=== PATIENT | male | born 1950 | race Two or more races ===

== ENCOUNTER 2020-06-22 07:59 | Outpatient (CLI) | payer OTHER | END 2020-06-22 08:10 | disposition home or self-care (01) | LOC: LAB 07:59 | PROVIDERS: ATTEND Orthopaedic Surgery | DX: D64.89 Other specified anemias (principal); M06.4 Inflammatory polyarthropathy ==

== ENCOUNTER 2020-06-30 07:52 | Outpatient (CLI) | payer OTHER | END 2020-06-30 08:14 | disposition home or self-care (01) | LOC: NUCLEAR 07:52 | PROVIDERS: ATTEND Orthopaedic Surgery | DX: M25.562 Pain in left knee (principal); Z96.652 Presence of left artificial knee joint; M81.0 Age-related osteoporosis without current pathological fracture | CPT/HCPCS: 77080; 78315; 78802; A9503; A9556 ==

== ENCOUNTER 2020-07-08 11:30 | Outpatient (CLI) | payer OTHER | END 2020-07-08 11:37 | disposition home or self-care (01) | LOC: SONOGRAMA 11:30 | PROVIDERS: ATTEND Pathology Anatomic Pathology & Clinical Pathology | DX: D34 Benign neoplasm of thyroid gland (principal); E04.2 Nontoxic multinodular goiter ==

== ENCOUNTER 2021-03-29 08:44 | Outpatient (CLI) | payer OTHER | END 2021-03-29 08:45 | disposition home or self-care (01) | LOC: NUCLEAR 08:44 | PROVIDERS: ATTEND Orthopaedic Surgery | DX: T84.093D Other mechanical complication of internal left knee prosthesis, subsequent encounter (principal); M25.562 Pain in left knee | CPT/HCPCS: 78315; 78802; A9503; A9556 ==

== ENCOUNTER 2022-03-29 07:24 | Outpatient (CLI) | payer OTHER | END 2022-03-29 07:26 | disposition home or self-care (01) | LOC: NUCLEAR 07:24 | PROVIDERS: ATTEND Orthopaedic Surgery | DX: M25.562 Pain in left knee (principal) | CPT/HCPCS: 78315; A9503 ==

== ENCOUNTER 2022-03-29 08:14 | Outpatient (CLI) | payer OTHER | END 2022-03-29 08:23 | disposition home or self-care (01) | LOC: RAD 08:14 | PROVIDERS: ATTEND Orthopaedic Surgery | DX: M25.551 Pain in right hip (principal); M25.552 Pain in left hip; M54.50 Low back pain, unspecified ==

== ENCOUNTER 2022-04-10 08:17 | Outpatient (CLI) | payer OTHER | END 2022-04-10 08:18 | disposition home or self-care (01) | LOC: NUCLEAR 08:17 | PROVIDERS: ATTEND Orthopaedic Surgery | DX: M25.562 Pain in left knee (principal) | CPT/HCPCS: 78800; A9556 ==